=== PATIENT | male | born 1940 | race Two or more races ===

== ENCOUNTER 2018-07-25 23:12 | Emergency (ER) | payer MEDICARE, BC ==
[~2018-07-25] VITALS: Ht 162.6 cm; Wt 72.6 kg
--- NOTE | 2018-07-25 23:30 | NUR ---
PT BIB FAMILY C/O ABDOMINAL PAIN X1.5 HOURS. PT COMPLAINING OF NAUSEA, NO VOMITTING OR DIARRHEA. PT RECENTLY HAD PROSTATE SX ON 07/04/18. TOOK NORCO 5/325 BEFORE ARRIVAL WITH NO RELIEF. PT AAOX4. RESPIRATIONS EVEN AND UNLABORED. SKIN WARM AND INTACT. PT PLACED ON MONITOR
--- NOTE | 2018-07-25 23:35 | NUR ---
MD AT BEDSIDE FOR EVALUATION
[2018-07-25] MEDS ORDERED: HYDROMORPHONE 1 MG/1 ML DISP.SYRIN ONE (23:42)
[2018-07-25] MEDS ORDERED: ONDANSETRON HCL/PF 4 MG/2 ML VIAL ONE (23:42)
--- NOTE | 2018-07-25 23:45 | NUR ---
INITIATED IV LEFT HAND 18G. LABS DRAWN FROM SITE, ROBOTIC WELDING OPERATOR AT BEDSIDE FOR COLLECTION. INTACT AND PATENT. PT MEDICATED PER MD ORDER
[2018-07-26] MEDS ORDERED: ONDANSETRON HCL/PF 4 MG/2 ML VIAL IVP ONE
[2018-07-26] MEDS ORDERED: IV NS 0.9% 1,000 ML BAG IV ONE
[2018-07-26] MEDS ORDERED: HYDROMORPHONE INJ 2 MG/ML DISP.SYRIN IV ONE
--- NOTE | 2018-07-26 | NUR ---
PT BROUGHT BY RADIOLOGY FOR CT
--- NOTE | 2018-07-26 00:10 | NUR ---
PT RETURNED FROM CT
[2018-07-26 00:15] LABS: BASOPHILS % (AUTO) 0.8 % (0.0-2.0); EOSINOPHILS % (AUTO) 3.6 % (0.0-6.0); HEMATOCRIT 39 % (39-51); LYMPHOCYTES % (AUTO) 39.3 % (20.0-44.0); MEAN CORPUSCULAR HGB CONC 33 g/dl (31.0-36.0); MEAN CORPUSCULAR VOLUME 96 fL (80-96); MONOCYTES % (AUTO) 10.3 % (2.0-12.0); PLATELET COUNT (AUTO) 193 /CMM (150-450); RDW COEFFICIENT OF VARIATION 12.9 (11.5-15.0); RED BLOOD CELL COUNT(AUTO) 4.05 MIL/uL (4.5-6.0); WHITE BLOOD COUNT (AUTO) 8.4 K/uL (4.3-11.0)
[2018-07-26 00:20] LABS: CALCIUM, SERUM 9.1 mg/dL (8.5-10.1); CARBON DIOXIDE 29 mmol/L (21-32); CHLORIDE 101 mmol/L (98-107); CREATININE 1.4 mg/dL (0.6-1.3); GLUCOSE 100 mg/dL (74-106); POTASSIUM 4.5 mmol/L (3.5-5.1); SODIUM SERUM 137 mmol/L (136-145); UREA NITROGEN, BLOOD 22 mg/dL (7-18)
--- NOTE | 2018-07-26 00:20 | NUR ---
AT BEDSIDE FOR RECTAL EXAM
--- NOTE | 2018-07-26 00:20 | NUR ---
32ML URINE FOUND VIA BLADDER SCANNER. AWARE
[2018-07-26 00:25] LABS: ALANINE AMINOTRANSFERASE 29 U/L (12-78); ALBUMIN 3.4 g/dL (3.4-5.0); ALKALINE PHOSPHATASE 98 U/L (46-116); ASPARTATE AMINOTRANSFERASE 25 U/L (15-37); BILIRUBIN,DIRECT 0.1 mg/dL (0.0-0.2); BILIRUBIN,TOTAL 0.5 mg/dL (0.2-1.0); LIPASE 198 U/L (73-393)
[2018-07-26 00:28] LABS: INR 0.99 (0.87-1.13)
[2018-07-26 00:40] LABS: OCCULT BLOOD STOOL NEGATIVE (NEGATIVE)
--- NOTE | 2018-07-26 01:05 | NUR ---
URINE COLLECTED. CALLED LAB FOR CONSERVATION PLANNER
[2018-07-26 01:16] LABS: APPEARANCE,URINE SL CLOUDY (CLEAR); BILIRUBIN,URINE NEGATIVE (NEGATIVE); BLOOD, URINE 3+ Ery/uL (NEGATIVE); COLOR,URINE YELLOW (YELLOW); KETONES,URINE NEGATIVE (NEGATIVE); LEUKOCYTE ESTERASE ,URINE TRACE (NEGATIVE); NITRITE, URINE NEGATIVE (NEGATIVE); PROTEIN,URINE 1+ mg/dl (NEGATIVE); UGLUCOSE NEGATIVE (NEGATIVE); UROBILINOGEN,URINE 0.2 EU/dL (0.2)
--- NOTE | 2018-07-26 01:27 | NUR ---
CALLED [facility] FOR REPORT
[2018-07-26 01:41] LABS: BACTERIA,URINE Few /HPF (None Seen); RBC,URINE TOO NUMEROUS TO COUN /HPF (0-2); SQUAMOUS EPITHELIAL CELL,UR Rare /HPF (None Seen)
--- NOTE | 2018-07-26 01:49 | NUR ---
CALLED [facility] FOR REPORT, STATES THEY ARE CURRENTLY READING IT
--- NOTE | 2018-07-26 03:17 | NUR ---
Patient discharged to home in stable condition. Written and verbal after care instructions given. Patient verbalizes understanding of instruction. IV removed. Catheter intact and site benign. Pressure and 4x4 applied to site. No bleeding noted. Pt ambulatory with a steady gait. Pt leaving with
[2018-07-26] MEDS ORDERED: AMOX/CLAVULANATE 875 MG TABLET ONE (03:26)
[2018-07-26 03:30] VITALS: BP 122/67
[2018-07-26] MEDS ORDERED: AMOX/CLAVULANATE 875 MG TABLET PO ONE (03:30)
== END 2018-07-26 03:31 | disposition home or self-care (01) ==
LOC: ER 23:25
DX: K57.92 Diverticulitis of intestine, part unspecified, without perforation or abscess without bleeding (principal); E78.00 Pure hypercholesterolemia, unspecified; N40.0 Benign prostatic hyperplasia without lower urinary tract symptoms; R00.1 Bradycardia, unspecified; Z98.890 Other specified postprocedural states
CPT/HCPCS: 36415; 80048-TC; 80076-TC; 81000-TC; 82272-TC; 83690-TC; 84484-TC; 85025-TC; 85730-TC; 87086-TC; A4606; J1170; J2405; J7030; Z7610

== ENCOUNTER 2022-03-02 11:30 | Emergency (ER) | payer MEDICARE, BC ==
[~2022-03-02] VITALS: Ht 167.6 cm; Wt 70.3 kg
--- NOTE | 2022-03-02 11:40 | NUR ---
[id number], from home, c/o chest pressure 1 hour HIDE SELECTOR 7/10 ps. Came with IV Cannula G20 inserted on left hand. Flushed with NS. Placed comfortably in bed. Attached to shelter monitor. Vitals checked and will continue to monitor.
[2022-03-02] MEDS ORDERED: ASPIRIN 81 MG TAB.CHEW ONE (11:41)
--- NOTE | 2022-03-02 11:46 | NUR ---
EKG DONE AT BEDSIDE
[2022-03-02] MEDS ORDERED: DONE5TAB34 PO (11:50)
[2022-03-02] MEDS ORDERED: SERT100T12 PO (11:50)
[2022-03-02] MEDS ORDERED: OXYB10TA30 PO (11:50)
[2022-03-02] MEDS ORDERED: CLON1TAB12 PO (11:50)
--- NOTE | 2022-03-02 11:50 | NUR ---
CONTROL CLERK AUDITING AT BEDSIDE.
[2022-03-02 11:56] LABS: BASOPHILS % (AUTO) 0.4 % (0.0-2.0); EOSINOPHILS % (AUTO) 3.7 % (0.0-6.0); HEMATOCRIT 40 % (39-51); HEMOGLOBIN 13.5 g/dL (13.5-17.5); LYMPHOCYTES # (AUTO) 1.8 K/uL (0.8-4.8); LYMPHOCYTES % (AUTO) 26.9 % (20.0-44.0); MEAN CORPUSCULAR HGB CONC 34 g/dl (31.0-36.0); MEAN CORPUSCULAR VOLUME 93 fL (80-96); MONOCYTES # (AUTO) 0.8 K/uL (0.1-1.30); NEUTROPHILS # (AUTO) 3.7 K/uL (1.8-8.9); PLATELET COUNT (AUTO) 150 K/uL (150-450); RED BLOOD CELL COUNT(AUTO) 4.31 MIL/uL (4.5-6.0); WHITE BLOOD COUNT (AUTO) 6.5 K/uL (4.3-11.0)
--- NOTE | 2022-03-02 11:58 | NUR ---
COVID SWAB DONE AND SENT TO LAB
--- NOTE | 2022-03-02 11:59 | NUR ---
Сергей ross in [facility] - 03/02/22 at 1159 by FAUSTO COVID SWAB DONE AND SENT TO LAB
[2022-03-02] MEDS ORDERED: ASPIRIN 81 MG TAB.CHEW PO ONE (12:00)
[2022-03-02] MEDS ORDERED: TADA20TA43 PO (12:12)
[2022-03-02 12:15] LABS: ALANINE AMINOTRANSFERASE 19 U/L (12-78); ALBUMIN 3.4 g/dL (3.4-5.0); ALKALINE PHOSPHATASE 78 U/L (46-116); ASPARTATE AMINOTRANSFERASE 22 U/L (15-37); BILIRUBIN,DIRECT 0.1 mg/dL (0.0-0.2); BILIRUBIN,TOTAL 0.5 mg/dL (0.2-1.0); CARBON DIOXIDE 28 mmol/L (21-32); CHLORIDE 103 mmol/L (98-107); CREATININE 1.2 mg/dL (0.6-1.3); GLUCOSE 98 mg/dL (74-106); POTASSIUM 4.1 mmol/L (3.5-5.1); SODIUM SERUM 136 mmol/L (136-145); UREA NITROGEN, BLOOD 15 mg/dL (7-18)
--- NOTE | 2022-03-02 12:39 | NUR ---
LUNCH SERVED TO PATIENT.
[2022-03-02] MEDS ORDERED: ACETAMINOPHEN 325 MG TABLET PO PRN (13:30)
[2022-03-02] MEDS ORDERED: ONDANSETRON HCL/PF 4 MG/2 ML VIAL IVP PRN (13:30)
--- NOTE | 2022-03-02 13:40 | NUR ---
PATIENT AND FAMILY WAS ADVISED FOR ADMISSION BUT REFUSED. THEY WANT TO SIGN AMA. FORM SIGNED BY PATIENT. ER DOCTORS MADE AWARE. CD AND COPY OF LAB WORKS GIVEN TO PATIENT'S .
--- NOTE | 2022-03-02 13:41 | NUR ---
IV CANNULA REMOVED
[2022-03-02 13:43] VITALS: BP 102/59
[2022-03-02] MEDS ORDERED: ATORVASTATIN 10 MG TABLET PO SCH (22:00)
[2022-03-03] MEDS ORDERED: ASPIRIN 81 MG TAB.CHEW PO SCH (09:00)
== END 2022-03-02 13:44 | disposition left against medical advice (07) ==
LOC: ER 11:37
DX: R07.9 Chest pain, unspecified (principal); R00.1 Bradycardia, unspecified; E78.00 Pure hypercholesterolemia, unspecified; N40.0 Benign prostatic hyperplasia without lower urinary tract symptoms; Z20.822 Contact with and (suspected) exposure to COVID-19; E78.5 Hyperlipidemia, unspecified
CPT/HCPCS: 36415; 71045-TC; 80048-TC; 80076-TC; 84484-TC; 85025-TC; C9803

== ENCOUNTER 2022-04-20 08:53 | Emergency (ER) | payer MEDICARE, BC ==
[~2022-04-20] VITALS: Ht 165.1 cm; Wt 59.0 kg
[~2022-04-20 08:53] MED LIST: CLON1TAB12 PO; DONE5TAB34 PO; OXYB10TA30 PO; SERT100T12 PO; TADA20TA43 PO
--- NOTE | 2022-04-20 09:19 | NUR ---
TAKEN TO CT VIA PEDRO
--- NOTE | 2022-04-20 09:36 | NUR ---
BACK TO ROOM FROM CT.
[2022-04-20] MEDS ORDERED: IBUPROFEN 600 MG TABLET ONE (09:55)
[2022-04-20] MEDS ORDERED: LIDOCAINE 1%-EPI 1:100,000 20 ML VIAL ONE (09:55)
[2022-04-20] MEDS: LIDOCAINE 1%-EPI 1:100,000 50 ML VIAL IJ ONE (09:58)
[2022-04-20] MEDS: IBUPROFEN 600 MG TABLET PO ONE (09:59)
--- NOTE | 2022-04-20 10:00 | NUR ---
MOTRINE 600MG GIVEN. XRAY AT BEDSIDE.
[2022-04-20] MEDS ORDERED: TDAP [DIPH/PERTUSSIS/TET] 0.5 ML VIAL IM ONE (11:13)
[2022-04-20] MEDS: TDAP [DIPH/PERTUSSIS/TET] 0.5 ML VIAL IM ONE (11:17)
--- NOTE | 2022-04-20 11:23 | NUR ---
LEFT MSG TO SANTO FOR FILTER BED PLACER. WILL CONTINUE TO FOLLOW UP.
--- NOTE | 2022-04-20 11:27 | NUR ---
IN WAITING ROOM TO WHEEL TRUER PATIENT. DISCHARGE INSTRUCTION GIVEN. PT VERBALIZES UNDERSTANDING.
[2022-04-20 11:46] VITALS: BP 134/75
== END 2022-04-20 11:50 | disposition home or self-care (01) ==
LOC: ER 08:55
DX: S02.2XXA Fracture of nasal bones, initial encounter for closed fracture (principal); S01.81XA Laceration without foreign body of other part of head, initial encounter; S80.02XA Contusion of left knee, initial encounter; E78.00 Pure hypercholesterolemia, unspecified; W01.0XXA Fall on same level from slipping, tripping and stumbling without subsequent striking against object, initial encounter; Y93.89 Activity, other specified; Y92.89 Other specified places as the place of occurrence of the external cause; Y99.8 Other external cause status
CPT/HCPCS: 12013; 70450; 70486; 72125; 73564; 90471; 90715; 99284; A6403 ×2; J3490 ×2

== ENCOUNTER 2022-05-30 18:41 | Emergency (ER) | payer MEDICARE, BC ==
[~2022-05-30] VITALS: Ht 162.6 cm; Wt 70.3 kg
[2022-05-30 19:33] VITALS: BP 133/78
--- NOTE | 2022-05-30 20:32 | NUR ---
Patient discharged to home in stable condition. Written and verbal after care instructions given. Patient verbalizes understanding of instruction.
== END 2022-05-30 20:32 | disposition home or self-care (01) ==
LOC: ER 18:59
DX: S20.211A Contusion of right front wall of thorax, initial encounter (principal); S40.011A Contusion of right shoulder, initial encounter; S29.9XXA Unspecified injury of thorax, initial encounter; E78.00 Pure hypercholesterolemia, unspecified; Z79.899 Other long term (current) drug therapy; W18.30XA Fall on same level, unspecified, initial encounter; Y93.89 Activity, other specified; Y92.89 Other specified places as the place of occurrence of the external cause; Y99.8 Other external cause status
CPT/HCPCS: 99284; 71100; 73030; A6403

== ENCOUNTER 2022-09-30 08:01 | Inpatient (IN) | payer MEDICARE, BC ==
[~2022-09-30] VITALS: Ht 162.6 cm; Wt 71.2 kg
--- NOTE | 2022-09-30 08:01 | NUR ---
TO ER BED 9, BIB RA 99 FROM HOME,SYNCOPAL EPISODE, TOOK VIAGRA EARLIER AND LATER TOOK A HOT SHOWER, AAOX2, BREATHING EVEN AND NON LABORED, CONNECTED TO MONITOR
--- NOTE | 2022-09-30 08:05 | NUR ---
SALINE LOCK ESTABLISHED, BLOOD DRAWN AND SENT TO LAB
[2022-09-30 08:31] LABS: BASOPHILS % (AUTO) 0.2 % (0.0-2.0); EOSINOPHILS % (AUTO) 0.3 % (0.0-6.0); HEMATOCRIT 41 % (39-51); HEMOGLOBIN 13.4 g/dL (13.5-17.5); LYMPHOCYTES # (AUTO) 1.5 K/uL (0.8-4.8); LYMPHOCYTES % (AUTO) 20.5 % (20.0-44.0); MEAN CORPUSCULAR HGB CONC 33 g/dl (31.0-36.0); MEAN CORPUSCULAR VOLUME 96 fL (80-96); MONOCYTES # (AUTO) 0.7 K/uL (0.1-1.30); MONOCYTES % (AUTO) 9.2 % (2.0-12.0); NEUTROPHILS # (AUTO) 5.2 K/uL (1.8-8.9); NEUTROPHILS % (AUTO) 69.8 % (43.0-81.0); PLATELET COUNT (AUTO) 136 K/uL (150-450); RED BLOOD CELL COUNT(AUTO) 4.29 MIL/uL (4.5-6.0); WHITE BLOOD COUNT (AUTO) 7.5 K/uL (4.3-11.0)
[2022-09-30 08:47] LABS: ALANINE AMINOTRANSFERASE 25 U/L (12-78); ALBUMIN 3.5 g/dL (3.4-5.0); ALKALINE PHOSPHATASE 74 U/L (46-116); ASPARTATE AMINOTRANSFERASE 22 U/L (15-37); BILIRUBIN,DIRECT 0.2 mg/dL (0.0-0.2); BILIRUBIN,TOTAL 0.9 mg/dL (0.2-1.0); CARBON DIOXIDE 31 mmol/L (21-32); CHLORIDE 105 mmol/L (98-107); CREATININE 1.2 mg/dL (0.6-1.3); GLUCOSE 111 mg/dL (74-106); POTASSIUM 3.7 mmol/L (3.5-5.1); SODIUM SERUM 138 mmol/L (136-145); TOTAL PROTEIN, SERUM 6.8 g/dL (6.4-8.2); UREA NITROGEN, BLOOD 18 mg/dL (7-18)
--- NOTE | 2022-09-30 09:21 | NUR ---
COVID SWAB DONE AND SENT TO LAB
--- NOTE | 2022-09-30 09:24 | NUR ---
MOVE SHEET SUBMITTED.
--- NOTE | 2022-09-30 12:23 | NUR ---
[facility] [phone]
[2022-09-30] MEDS ORDERED: ONDANSETRON HCL/PF 4 MG/2 ML VIAL IVP PRN (19:00)
[2022-09-30] MEDS ORDERED: HYDROCODONE/APAP 5/325MG TABLET PO PRN (19:00)
[2022-09-30] MEDS ORDERED: MAG HYDROX/AL HYDROX/SIMETH 30 ML UDC PO PRN (19:00)
[2022-09-30] MEDS ORDERED: Z GUARD REMEDY 4 OZ OINT TP PRN (19:00)
[2022-09-30] MEDS ORDERED: ZOLPIDEM TARTRATE 5 MG TABLET PO PRN (19:00)
[2022-09-30] MEDS ORDERED: MAGNESIUM HYDROXIDE 30 ML UDC PO PRN (19:00)
--- NOTE | 2022-09-30 19:23 | NUR ---
PT RETURNED TO ER BED [address]
--- NOTE | 2022-09-30 20:06 | NUR ---
US TECH AT PT'S BEDSIDE FOR ECG
--- NOTE | 2022-09-30 20:45 | NUR ---
PT HAS BED PENDING IN ROOM 256
--- NOTE | 2022-09-30 21:21 | NUR ---
REPORT GIVEN TO CALE BOBCAT OPERATOR FOR MCKINLEY
--- NOTE | 2022-09-30 22:00 | NUR ---
PT VOIDED WITH 125ML URINE OUTPUT VIA URINAL
--- NOTE | 2022-09-30 22:15 | NUR ---
Received patient from ED per anu via ACLS protocol.Admitted with Dx: ICH.Patient awake alert and oriented x1 otherwise confused.Respiration even and unlabored.RA saturation wnl.SB 85's.Denies any discomfort.Oriented patient to unit,call light and plan of care explained to patient. Verbalized understanding.Admission assessment done.Safety measures implemented.Call light at bedside within easy reach.Continue monitoring.
--- NOTE | 2022-09-30 22:17 | NUR ---
PT TRANSFERRED TO ICU VIA ACLS PROTOCOL. VSS. CELLPHONE AND BELONGINGS AT PT'S BEDSIDE. BEDSIDE REPORT GIVEN TO DILEEP NUCLEAR WEAPONS SPECIALIST.
[2022-09-30] MEDS: IV NS 0.9% 1,000 ML IV PRN (22:23)
[2022-09-30 22:25] VITALS: BP 147/75
[2022-09-30 23:00] VITALS: BP 147/78
[2022-09-30 23:30] VITALS: BP 123/78
[2022-10-01] VITALS (18 sets, daily range): BP systolic 96–146; BP diastolic 48–75
[2022-10-01] MEDS: IV NS 0.9% 1,000 ML IV PRN ×2 (04:52→15:03)
[2022-10-01 05:11] LABS: BASOPHILS % (AUTO) 0.4 % (0.0-2.0); EOSINOPHILS % (AUTO) 0.3 % (0.0-6.0); HEMATOCRIT 39 % (39-51); HEMOGLOBIN 12.8 g/dL (13.5-17.5); LYMPHOCYTES # (AUTO) 1.6 K/uL (0.8-4.8); LYMPHOCYTES % (AUTO) 18.7 % (20.0-44.0); MEAN CORPUSCULAR HGB CONC 33 g/dl (31.0-36.0); MEAN CORPUSCULAR VOLUME 95 fL (80-96); MONOCYTES % (AUTO) 11.1 % (2.0-12.0); NEUTROPHILS # (AUTO) 6.1 K/uL (1.8-8.9); NEUTROPHILS % (AUTO) 69.5 % (43.0-81.0); PLATELET COUNT (AUTO) 123 K/uL (150-450); RED BLOOD CELL COUNT(AUTO) 4.11 MIL/uL (4.5-6.0); WHITE BLOOD COUNT (AUTO) 8.8 K/uL (4.3-11.0)
[2022-10-01 05:30] LABS: ALANINE AMINOTRANSFERASE 27 U/L (12-78); ALKALINE PHOSPHATASE 68 U/L (46-116); ASPARTATE AMINOTRANSFERASE 21 U/L (15-37); BILIRUBIN,TOTAL 0.8 mg/dL (0.2-1.0); CALCIUM, SERUM 7.9 mg/dL (8.5-10.1); CARBON DIOXIDE 30 mmol/L (21-32); CHLORIDE 107 mmol/L (98-107); GLUCOSE 101 mg/dL (74-106); MAGNESIUM 1.9 mg/dL (1.8-2.4); PHOSPHORUS 2.4 mg/dL (2.5-4.9); POTASSIUM 3.8 mmol/L (3.5-5.1); SODIUM SERUM 140 mmol/L (136-145); UREA NITROGEN, BLOOD 18 mg/dL (7-18)
[2022-10-01 06:03] LABS: THYROID STIMULATING HORMONE 2.118 uIU/mL (0.358-3.74)
--- NOTE | 2022-10-01 06:30 | NUR ---
Patient VS remains stable.SB 40'S-50'S.Denies pain or any discomfort.Sleep most of the night. Stand up to urinate.Tolerating po intake.IVF infusing well.No significant changes noted during the shift.Will endorse to day shift for MCKINLEY.
[2022-10-01] MEDS: PANTOPRAZOLE 40 MG TABLET.DR PO SCH (07:58)
--- NOTE | 2022-10-01 08:00 | NUR ---
RN NOTES SEEN PATIENT A/O X3 WITH FORGETFULNESS, ROOM AIR FIO2-98, NO SOB NOTED, HR WAS 57 SINUS NEURO ASSESSMENT DONE, PATIENT FOLLOW COMMAND, REDIRECTABLE, REFUSED PAIN, PATIENT USING URINAL. DUE MEDICATION ADMINISTERED, TOLERATED BREAKFAST 50% SELF. IV ACCESS ON LEFT HAND INTACT INFUSING NS@125ML/HR INTACT. CALL LIGHT WITHIN TO REACH. WILL FOLLOW UP.
[2022-10-01] MEDS: SERTRALINE HCL 50 MG TABLET PO SCH (08:20)
[2022-10-01] MEDS ORDERED: K PHOS NEUTRAL 250 MG TABLET PO ONE (09:00)
--- NOTE | 2022-10-01 10:00 | NUR ---
rn notes patient noted has heavens on front pat of head bp-126/56, p-57. next to the bed. . also seen patient via PT, and will follow up tomorrow, patient get up and seat on bedside chair. call light within to reach.
[2022-10-01] MEDS: ACETAMINOPHEN 325 MG TABLET PO PRN ×2 (10:56→18:32)
--- NOTE | 2022-10-01 10:57 | NUR ---
rn notes patient was complaining of headache administered tylenol 650 mg po prn per patient request.
--- NOTE | 2022-10-01 12:27 | NUR ---
rn notes notified Dr Gonsales about CT head RESULT, and get result he will contact hospitalist for new orders.
--- NOTE | 2022-10-01 14:03 | NUR ---
rn notes seen patient via hospitalist Dr Tong, also will follow up neuro surgeon, and new order is transfer patient to the acute hospital icu. Case management aware of .
--- NOTE | 2022-10-01 17:30 | NUR ---
RN NOTES SEEN PATIENT VIA NEUROLOGIST DR REZA AND GET VERBAL ORDER KEPPRA 500 MG BID, AND 500MG X1 NOW ORDER TAKEN AND CARRIED OUT.
[2022-10-01] MEDS ORDERED: LEVETIRACETAM (250 MG) 250 MG TABLET PO ONE (18:00)
--- NOTE | 2022-10-01 18:33 | NUR ---
RN NOTES ADMINISTERED TYLENOL 650 MG PO PRN FOR HEADACHE PER PATIENT REQUEST. PM CARE DONE, MEDICATION ADMINISTERED, VSS, PATIENT ROOM AIR, NEURO ASSESSMENT DONE, PATIENT A/O X3, NO SEIZURE NOTED, NO SOB, ABLE TO MOVE IN THE BED BY SELF, CALL LIGHT WITHIN TO REACH. INFUSING NS @125 ML/HR. ENDORSED ONCOMING NURSE MCKINLEY.
--- NOTE | 2022-10-01 19:05 | NUR ---
RN OPENING NOTES RECEIVED PATIENT ON BED AWAKE AND VERBALLY RESPONSIVE. ON ROOM AIR SATING AT 95%. RESPIRATORY EVEN AND UNLABORED, NO SOB NOTED, AFEBRILE, NO S/S OF DISTRESS NOTED. PATIENT ABLE TO STAND TO USED URINAL. NOTED WITH FIGHT FOREARM # 20 PERIPHERAL LINE, FLUSHED WITH NS, NO S/S OF INFILTRATION NOTED. RUNNING WITH IVF OF NS @ 125 ml/hr. ALL SAFETY PRECAUTION PROVIDED. BED IN LOWEST POSITION, LOCKED. BED ALARM ARMED. CALL LIGHT WITH REACH. CONTINUE TO MONITOR.
[2022-10-01] MEDS: LEVETIRACETAM (250 MG) 250 MG TABLET PO SCH (21:25)
[2022-10-02] VITALS (36 sets, daily range): BP systolic 43–164; BP diastolic 28–91
[2022-10-02] MEDS: IV NS 0.9% 1,000 ML IV PRN (00:21)
[2022-10-02 04:35] LABS: BASOPHILS % (AUTO) 0.2 % (0.0-2.0); EOSINOPHILS % (AUTO) 2.5 % (0.0-6.0); HEMATOCRIT 40 % (39-51); HEMOGLOBIN 12.7 g/dL (13.5-17.5); LYMPHOCYTES # (AUTO) 2.1 K/uL (0.8-4.8); MEAN CORPUSCULAR HGB CONC 32 g/dl (31.0-36.0); MEAN CORPUSCULAR VOLUME 96 fL (80-96); MONOCYTES # (AUTO) 0.8 K/uL (0.1-1.30); MONOCYTES % (AUTO) 10.8 % (2.0-12.0); NEUTROPHILS # (AUTO) 4.1 K/uL (1.8-8.9); NEUTROPHILS % (AUTO) 57.5 % (43.0-81.0); PLATELET COUNT (AUTO) 121 K/uL (150-450); RED BLOOD CELL COUNT(AUTO) 4.12 MIL/uL (4.5-6.0); WHITE BLOOD COUNT (AUTO) 7.1 K/uL (4.3-11.0)
[2022-10-02 04:52] LABS: CALCIUM, SERUM 8.1 mg/dL (8.5-10.1); CREATININE 1.1 mg/dL (0.6-1.3); MAGNESIUM 1.9 mg/dL (1.8-2.4); PHOSPHORUS 2.8 mg/dL (2.5-4.9); POTASSIUM 3.8 mmol/L (3.5-5.1)
[2022-10-02] MEDS: PANTOPRAZOLE 40 MG TABLET.DR PO SCH (07:46)
[2022-10-02] MEDS: LEVETIRACETAM (250 MG) 250 MG TABLET PO SCH ×2 (08:05→18:44)
[2022-10-02] MEDS: SERTRALINE HCL 50 MG TABLET PO SCH (08:05)
[2022-10-02] MEDS ORDERED: LEVE250T2 PO (16:54)
--- NOTE | 2022-10-02 19:00 | NUR ---
CASINO FLOOR PERSON NOTES' PATIENT DISCHARGE AT THIS TIME GOING HOME. DISCHARGE ORDER REVIEWED AND EXPLAINED TO THE NAME JONATHAN, AND PATIENT. VERBALIZED UNDERSTANDING. PATIENT WILL FOLLOW UP NEUROLOGIST DURING A WEEK. 2100 MEDICATION KEPPRA ADMINISTERED AT THIS TIME, HOSPITALIST, AND PHARMACY AWARE OF. MEDICATION ELECTRONICALLY DONE VIA HOSPITALIST. PAPERWORK SIGNED VIA PATIENT, AND HANDED TO THE HIM. BELONGING WITH THE PATIENT . ESCORTED PATIENT TO THE LOBBY FOR SAFETY. PATIENT TAPPER BIT VIA NAME JONATHAN PHONE # [phone].
== END 2022-10-02 19:10 | disposition home or self-care (01) | DRG 65 ==
LOC: ER 08:03 → ICU 20:39
PROVIDERS: ADMIT Student in an Organized Health Care Education/Training Program; ATTEND Student in an Organized Health Care Education/Training Program
DX: I61.9 Nontraumatic intracerebral hemorrhage, unspecified (principal); N17.9 Acute kidney failure, unspecified; I73.89 Other specified peripheral vascular diseases; W19.XXXA Unspecified fall, initial encounter; Z20.822 Contact with and (suspected) exposure to COVID-19; E78.00 Pure hypercholesterolemia, unspecified; N40.0 Benign prostatic hyperplasia without lower urinary tract symptoms; Z79.899 Other long term (current) drug therapy; T46.7X5A Adverse effect of peripheral vasodilators, initial encounter; Y92.002 Bathroom of unspecified non-institutional (private) residence as the place of occurrence of the external cause; D64.9 Anemia, unspecified; E78.5 Hyperlipidemia, unspecified; F03.90 Unspecified dementia, unspecified severity, without behavioral disturbance, psychotic disturbance, mood disturbance, and anxiety; R56.9 Unspecified convulsions
CPT/HCPCS: 36415; 70450-TC; 71045-TC; 72125-TC; 80048-TC; 80053-TC; 80076-TC; 83735-TC; 84100-TC; 84443-TC; 84484-TC; 85025-TC; 85730-TC; 87081-TC; 93307-TC; 97112-TC; 97116-TC; 97530-TC; C9803; G0378; J7030